=== PATIENT | male | born 1985 | race African-American/Black ===

== ENCOUNTER 2016-11-13 13:18 | Emergency (ER) | payer MEDICAID ==
[~2016-11-13] VITALS: Ht 177.8 cm; Wt 93.0 kg
[2016-11-13 13:40] VITALS: BP 117/65; PULSE 85; RESP 16; TEMP 97.6; O2SAT 100
--- NOTE | 2016-11-13 13:44 | NUR ---
Patient triaged and placed in waiting room. VSS and patient appears in no acute distress at this time. Accompanied by SELF, awaiting available bed, and MD notified of need for MSE.
--- NOTE | 2016-11-13 14:38 | NUR ---
Patient to ER bed 1 to gown for evaluation. Side rails up. Report given to KATIA GARCIA.
--- NOTE | 2016-11-13 14:38 | NUR ---
c/o abscess behind right ear,swelling, tender.no drainage.
--- NOTE | 2016-11-13 15:00 | NUR ---
LEXA VYAS at bedside examining patient.
[2016-11-13] MEDS ORDERED: LIDOCAINE/EPI 1% 1:100000 20 ML VIAL IJ ONE (15:30)
[2016-11-13] MEDS ORDERED: IBUPROFEN 800 MG TABLET PO ONE (15:30)
--- NOTE | 2016-11-13 15:48 | NUR ---
I & D set up, Perfomed by LEXA de [place],packing with idoform. dressing with 4x4.pt tolerated well
--- NOTE | 2016-11-13 15:54 | NUR ---
Patient given written and verbal discharge instructions and verbalizes understanding. ER MD discussed with patient the results and treatment provided. Patient in stable condition. ID arm band removed. Rx of x 3 motrin,bactrim ds, keflex given. Patient educated on pain management and to follow up with PMD. Pain Scale . Opportunity for questions provided and answered.
[2016-11-13 15:55] VITALS: BP 110/70; PULSE 81; RESP 16; TEMP 97.6; O2SAT 100
== END 2016-11-13 15:55 | disposition home or self-care (01) ==
LOC: SED 13:18
DX: L02.11 Cutaneous abscess of neck (principal); J45.909 Unspecified asthma, uncomplicated
CPT/HCPCS: 99283

== ENCOUNTER 2016-11-15 12:49 | Emergency (ER) | payer MEDICAID ==
[~2016-11-15] VITALS: Ht 177.8 cm; Wt 93.0 kg
[2016-11-15 12:54] VITALS: BP 115/58; PULSE 94; RESP 16; TEMP 97.3; O2SAT 99
--- NOTE | 2016-11-15 12:55 | NUR ---
Patient to ER bed 2 to gown for evaluation. Side rails up. Report given to Isabella GARCIA.
--- NOTE | 2016-11-15 13:00 | NUR ---
ER Dr. Marcus at bedside examining patient.
--- NOTE | 2016-11-15 13:00 | NUR ---
Patient in stable condition, alert and oriented x4. States is here for a wound recheck from an I&D that was done on fri. Wound to right posterior neck with strip packing noted. Wound bed yellow and red, wero wound pink, slight yellow drainage noted. No other complaints/injuries per patient or noted. Addendum: 11/15/16 at 1329 by LAUREN site 1.4cm
--- NOTE | 2016-11-15 13:17 | NUR ---
Dr. Marcus at bedside for repacking of wound to right posterior neck with 1/4 inch iodaform.
--- NOTE | 2016-11-15 13:20 | NUR ---
Site clean dry and intact following Dr. Marcus removing old packing, cleaning, and repacking. Covered with bandaid.
[2016-11-15 13:25] VITALS: BP 120/65; PULSE 89; RESP 16; TEMP 97.1; O2SAT 99
--- NOTE | 2016-11-15 13:25 | NUR ---
Patient given written and verbal discharge instructions and verbalizes understanding. ER MD discussed with patient the results and treatment provided.Patient in stable condition. ID arm band removed. Patient educated on pain management and to return to ER in 2 days for recheck and repacking. Pain Scale 0/10. Opportunity for questions provided and answered.
== END 2016-11-15 13:25 | disposition home or self-care (01) ==
LOC: SED 12:49
DX: Z48.01 Encounter for change or removal of surgical wound dressing (principal); J45.909 Unspecified asthma, uncomplicated
CPT/HCPCS: 99283

== ENCOUNTER 2017-01-09 13:46 | Emergency (ER) | payer MEDICAID ==
[~2017-01-09] VITALS: Ht 177.8 cm; Wt 93.0 kg
[2017-01-09 13:55] VITALS: BP_SYST 112
[2017-01-09] MEDS: IBUPROFEN 800 MG TABLET PO ONE (14:48)
[2017-01-09] MEDS: LIDOCAINE 1% 10 MG/ML, 20 ML MDV INJ ONE (14:49)
[2017-01-09 15:17] VITALS: BP_SYST 118
== END 2017-01-09 15:17 | disposition home or self-care (01) ==
LOC: SED 13:46
DX: L03.012 Cellulitis of left finger (principal); J45.909 Unspecified asthma, uncomplicated
CPT/HCPCS: 26010; 99283; J2001

== ENCOUNTER 2018-12-06 12:57 | Emergency (ER) | payer MEDICAID ==
[~2018-12-06] VITALS: Ht 177.8 cm; Wt 117.9 kg
[2018-12-06 13:05] VITALS: BP_SYST 145
[2018-12-06 13:55] VITALS: BP_SYST 140
== END 2018-12-06 13:55 | disposition home or self-care (01) ==
LOC: SED 12:57
DX: H61.21 Impacted cerumen, right ear (principal); R03.0 Elevated blood-pressure reading, without diagnosis of hypertension; J45.909 Unspecified asthma, uncomplicated
CPT/HCPCS: 99283

== ENCOUNTER 2022-11-29 08:13 | Emergency (ER) | payer MEDICAID ==
[~2022-11-29] VITALS: Ht 177.8 cm; Wt 113.4 kg
--- NOTE | 2022-11-29 08:15 | NUR ---
Placed in room 03 . Placed on clinical research monitor, blood pressure machine and pulse oximeter. To gown for exam. Side rails up.
--- NOTE | 2022-11-29 08:17 | NUR ---
pt bib self awake and ALERT AOX4. PT C/O CHEST PAIN. PT STATED HE JUST LEFT [facility] ER LAST NIGHT FOR SAME COMPLIANT. PT SAID AFTER HE LEFT [facility] HE WENT TO THE GYM AND FELT PAIN AGAIN IN HIS CHEST. PAIN 12/23.
--- NOTE | 2022-11-29 08:20 | NUR ---
ER DR. FRANKLIN EXAMINING PT
[2022-11-29 08:23] VITALS: BP_SYST 133
--- NOTE | 2022-11-29 08:35 | NUR ---
LAB AT THE BEDSIDE FOR BLOOD DRAW
[2022-11-29 09:07] LABS: BASOPHILS # (AUTO) 0.1 K/uL (0.0-0.2); EOSINOPHILS % (AUTO) 0.4 % (0.0-4.0); HEMATOCRIT 41.7 % (36-54); HEMOGLOBIN 13.9 g/dL (14.0-18.0); LYMPHOCYTES # (AUTO) 1.6 K/uL (1.0-5.5); MEAN CORPUSCULAR HEMOGLOBIN 28 pg (27-31); MEAN CORPUSCULAR HGB CONC 33 % (32-36); MEAN CORPUSCULAR VOLUME 84 fL (79.0-98.0); MONOCYTES # (AUTO) 0.5 K/uL (0.0-1.0); MONOCYTES % (AUTO) 7.8 % (1.7-9.3); NEUTROPHILS # (AUTO) 4.2 K/uL (1.8-7.7); NEUTROPHILS % (AUTO) 65.8 % (40.0-70.0); PLATELET COUNT (AUTO) 279 K/uL (130-430); RED BLOOD CELL COUNT(AUTO) 4.96 MIL/uL (4.2-6.2); RED CELL DISTRIBUTION WIDTH 13.8 % (9.0-15.0); WHITE BLOOD COUNT (AUTO) 6.3 K/uL (4.8-10.8)
[2022-11-29 09:15] LABS: ANION GAP 8 (5-15); CALCIUM 9.5 mg/dL (8.4-11.0); CHLORIDE 102 mmol/L (98-107); CREATININE 1.19 mg/dL (0.55-1.30); GLUCOSE 103 mg/dL (70-99); UREA NITROGEN, BLOOD 9 mg/dL (8-21)
[2022-11-29 09:18] LABS: GFR AFRICAN AMERICAN 88 mL/min (>90)
[2022-11-29 09:22] LABS: ALANINE AMINOTRANSFERASE 40 U/L (12-78); ASPARTATE AMINOTRANSFERASE 23 U/L (10-37); TOTAL BILIRUBIN 0.8 mg/dL (0.0-1.0)
--- NOTE | 2022-11-29 09:40 | NUR ---
Patient given written and verbal discharge instructions and verbalizes understanding. ER MD DR FRANKLIN discussed with patient the results and treatment provided. Patient in stable condition. ID arm band removed. Rx of given. Patient educated on pain management and to follow up with PMD. Pain Scale 2/10. Opportunity for questions provided and answered. Medication side effect fact sheet provided.
[2022-11-29 09:42] VITALS: BP_SYST 135
[2022-11-30] MEDS ORDERED: MECL-160 PO (23:40)
== END 2022-11-29 09:40 | disposition home or self-care (01) ==
LOC: SED 08:13
DX: R07.89 Other chest pain (principal); Z79.899 Other long term (current) drug therapy
CPT/HCPCS: 36415; 80053; 84484; 85025; 93005; 99284

== ENCOUNTER 2022-11-30 20:11 | Emergency (ER) | payer MEDICAID ==
[~2022-11-30] VITALS: Ht 177.8 cm; Wt 104.3 kg
[2022-11-30 20:14] VITALS: BP_SYST 133
[2022-11-30] MEDS ORDERED: MECL-160 PO (23:40)
[2022-11-30 23:48] VITALS: BP_SYST 134
== END 2022-11-30 23:48 | disposition home or self-care (01) ==
LOC: SED 20:11
DX: R42 Dizziness and giddiness (principal); J45.909 Unspecified asthma, uncomplicated; Z79.899 Other long term (current) drug therapy
CPT/HCPCS: 99282